=== PATIENT | female | born 1990 ===

== ENCOUNTER 2018-11-07 12:32 | Emergency (ER) | payer MEDICAID ==
[2018-11-07] MEDS ORDERED: Sodium Chloride 0.9% 1,000 ML IV ONE (13:00)
[2018-11-07] MEDS ORDERED: Sodium Chloride 0.9% 1,000 ML ONE (13:39)
--- NOTE | 2018-11-07 13:44 | C.PDOC ---
History Of Present Illness 28 year old female presents to the ED for evaluation of epigastric abdominal pain (contrary to triage) which gradually developed since yesterday. Patient reports associated nausea, around 3-pt denies recent illness, fever, chills, abx use, cough, CP, SOB, dyspnea, palpitation, hematemesis, melena, dysuria, hematuria, urinary frequency, back pain, recent illness, recent travel, or recent sick contacts. Ambulatory, not in any apparent distress. Time Seen by Provider: 11/07/18 12:54 Chief Complaint (Nursing): Abdominal Pain History Per: Patient History/Exam Limitations: no limitations Onset/Duration Of Symptoms: Hrs, Gradual Current Symptoms Are (Timing): Still Present Location Of Pain/Discomfort: Epigastric Quality Of Discomfort: "Pain" Associated Symptoms: Nausea, Vomiting, Diarrhea. denies: Fever, Chills, Back Pain, Urinary Symptoms Additional History Per: Patient Past Medical History Reviewed: Historical Data, Nursing Documentation, Vital Signs Vital Signs: Last Vital Signs Temp 98 F 11/07/18 12:36 Pulse 113 H 11/07/18 12:36 Resp 17 11/07/18 12:36 BP 130/86 11/07/18 12:36 Pulse Ox 98 11/07/18 12:36 - Medical History PMH: No Chronic Diseases Surgical History: No Surg Hx Family History: States: Unknown Family Hx - Social History Hx Alcohol Use: No Hx Substance Use: No - Immunization History Hx Tetanus Toxoid Vaccination: No Hx Influenza Vaccination: No Hx Pneumococcal Vaccination: No Review Of Systems Constitutional: Negative for: Fever, Chills Gastrointestinal: Positive for: Nausea, Vomiting, Abdominal Pain (epigastric ), Diarrhea Genitourinary: Negative for: Dysuria, Frequency, Hematuria Musculoskeletal: Negative for: Back Pain Physical Exam - Physical Exam Appears: Well, Non-toxic, No Acute Distress Skin: Normal Color, Warm, Dry Head: Normacephalic Eye(s): bilateral: PERRL Nose: No Flaring Oral Mucosa: Moist Throat: No Erythema, No Drooling Neck: Trachea Midline, Supple Cardiovascular: Rhythm Regular, No Murmur Respiratory: No Decreased Breath Sounds, No Accessory Muscle Use, No Rales, No Rhonchi, No Stridor, No Wheezing Gastrointestinal/Abdominal: Soft, Tenderness (mild, epigastric ), No Guarding, No Rebound Back: No CVA Tenderness Extremity: Normal ROM, No Tenderness, No Swelling Neurological/Psych: Oriented x3, Normal Speech, Normal Cognition ED Course And Treatment - Laboratory Results Result Diagrams: 11/07/18 14:01 11/07/18 14:01 Lab Interpretation: No Acute Changes Urine POC: Negative O2 Sat by Pulse Oximetry: 98 (on RA) Pulse Ox Interpretation: Normal - CT Scan/US Gallbladder Ultrasound Other Rad Studies (CT/US): Read By Radiologist, Radiology Report Reviewed CT/US Interpretation: Date of service: 11/07/2018. HISTORY: RUQ/epigastric pain. COMPARISON: None available. TECHNIQUE: Sonographic evaluation of the right upper quadrant of the abdomen. FINDINGS: Examination limited by bowel g as. LIVER: Measures 13.2 cm in length. Echogenic liver may be seen in setting of hepatic parenchymal disease or fatty infiltration. No focal hepatic mass identified. The main portal vein appears patent with normal directional flow. No intrahepatic bile duct dilatation. GALLBLADDER: No gallstones. No gallbladder wall thickening or pericholecystic edema. Negative sonographic Ramirez's sign as assessed by the cook pickled meat. COMMON BILE DUCT: Measures 2 mm. PANCREAS: Not well-visualized. RIGHT KIDNEY: Measures approximately 9.5 x 3.6 x 4.0 cm. No obstructing calculus or hydronephrosis. AORTA: Limited visualization appears grossly unremarkable. IVC: Limited visualization appears grossly unremarkable. OTHER FINDINGS: None . IMPRESSION: Examination limited by bowel gas. Echogenic liver may be seen in setting of hepatic parenchymal disease or fatty infiltration. Progress Note: Bloodwork and urinalysis ordered and reviewed. Pepcid IVP, Zofran IVP, Protonix IVP and IV Fluids given. Pt was OBS in ED for 3 hours and reports moderate improvement in sx. On re-eval, pt is afebrile, henodynamical stable. non-toxic. Able tolerate Po well in Ed. ENT: no acute findings. neck: Supple, (-) carotid bruits B/L, (-) JVD. Lungs: CTA B/L, BS equal B/L. Abd: benign, (-) guarding, (-) rebound, (-) localized tenderness. back: (-) CVA tenderness. Blood work, UA, US results review and appears without acute abnoramlities. Pt has lcinical findings c/w N/V/D, epigastric pian, resolved. Pt advised. ref. to f/u with PMD in 2-3 days for re-eval. return if any new changes Disposition Counseled Patient/Family Regarding: Studies Performed, Diagnosis, Need For Followup, Rx Given - Disposition Referrals: Andrea Brunner MD [Staff Provider] - Disposition: HOME/ ROUTINE Disposition Time: 15:47 Condition: STABLE Additional Instructions: Encourage fluids BRAT diet- banana, rice, apple sauce, toast Take medication as need as prescribed Follow up with PMD in 2-3 days for re-evaluation. return if any new changes. Prescriptions: Famotidine [Pepcid] 20 mg PO BID #10 tab Ondansetron ODT [Zofran ODT] 1 odt PO BID PRN #6 odt PRN Reason: Nausea/Vomiting Instructions: Nausea and Vomiting, Adult (DC), Diarrhea in Adolescents and Adults Forms: [facility] (Azerbaijani), Work Excuse Print Language: ICELANDIC - Clinical Impression Clinical Impression: Vomiting, Diarrhea - PA / FISH BUTCHER / Resident Statement MD/DO has reviewed & agrees with the documentation as recorded. - Scribe Statement The provider has reviewed the documentation as recorded by the Scribe (Elba Scanlon) All medical record entries made by the Scribe were at my direction and personally dictated by me. I have reviewed the chart and agree that the record accurately reflects my personal performance of the history, physical exam, medical decision making, and the department course for this patient. I have also personally directed, reviewed, and agree with the discharge instructions and disposition.
[2018-11-07 14:04] LABS: BASO % 0.4 % (0.0-2.0); EOS # 0.3 K/uL (0.0-0.7); EOS % 3.3 % (0.0-4.0); HEMOGLOBIN 14.9 g/dL (11.0-16.0); LYMPH # 1.2 K/uL (1.0-4.3); MEAN CELL VOLUME 90.8 fL (81.0-99.0); MEAN CORPUSCULAR HEMOGLOBIN 31.2 pg (27.0-31.0); MEAN CORPUSCULAR HGB CONC 34.3 g/dL (33.0-37.0); MONO # 0.6 K/uL (0.0-0.8); MONO % 6.7 % (0.0-10.0); NEUT # 6.4 K/uL (1.8-7.0); NEUT % 75.6 % (50.0-75.0); RBC 4.78 Mil/uL (3.80-5.20); RED CELL DISTRIBUTION WIDTH 13.7 % (11.5-14.5); WHITE BLOOD COUNT 8.4 K/uL (4.8-10.8)
[2018-11-07 14:18] LABS: ALB/GLOB RATIO 1.4 (1.0-2.1); ALT/SGPT 22 U/L (9-52); AST/SGOT 40 U/L (14-36); BLOOD UREA NITROGEN 13 mg/dL (7-17); CALCIUM 9.2 mg/dl (8.6-10.4); GFR NON-AFRICAN AMERICAN > 60; LIPASE 88 U/L (23-300)
[2018-11-07 14:56] LABS: HCG,QUALITATIVE URINE NEGATIVE (NEGATIVE)
[2018-11-07 15:04] LABS: SQUAMOUS EPITHIAL 6 /hpf (0-5); URINE BACTERIA RARE (<OCC); URINE BILIRUBIN NEGATIVE (NEGATIVE); URINE BLOOD NEGATIVE (NEGATIVE); URINE CLARITY Hazy (Clear); URINE COLOR Amber (YELLOW); URINE GLUCOSE (UA) NORMAL (Normal); URINE HYALINE CAST 0-2 /lpf (0-2); URINE LEUKOCYTE ESTERASE NEG Leu/uL (Negative); URINE PROTEIN 1+ mg/dL (NEGATIVE)
--- NOTE | 2018-11-07 16:38 | US ---
Date of service: 11/07/2018 HISTORY: RUQ/epigastric pain COMPARISON: None available. TECHNIQUE: Sonographic evaluation of the right upper quadrant of the abdomen. FINDINGS: Examination limited by bowel gas. LIVER: Measures 13.2 cm in length. Echogenic liver may be seen in setting of hepatic parenchymal disease or fatty infiltration. No focal hepatic mass identified. The main portal vein appears patent with normal directional flow. No intrahepatic bile duct dilatation. GALLBLADDER: No gallstones. No gallbladder wall thickening or pericholecystic edema. Negative sonographic Ramirez's sign as assessed by the agronomy location manager. COMMON BILE DUCT: Measures 2 mm. PANCREAS: Not well-visualized. RIGHT KIDNEY: Measures approximately 9.5 x 3.6 x 4.0 cm. No obstructing calculus or hydronephrosis. AORTA: Limited visualization appears grossly unremarkable. IVC: Limited visualization appears grossly unremarkable. OTHER FINDINGS: None . IMPRESSION: Examination limited by bowel gas. Echogenic liver may be seen in setting of hepatic parenchymal disease or fatty infiltration.
[2018-11-07 17:08] VITALS: BP 107/75; PULSE 95; RESP 18; TEMP 98.6; O2SAT 99
== END 2018-11-07 17:23 | disposition home or self-care (01) ==
LOC: C.ER 12:32
DX: R11.2 Nausea with vomiting, unspecified (principal); R19.7 Diarrhea, unspecified
CPT/HCPCS: 76705; 80053; 81001; 83690; 84703; 85025; 96361; 96374; 96375; 99285; C9113; J2405; J7030